=== PATIENT | male | born 1945 | race Caucasian/White ===

== ENCOUNTER → 2016-11-23 08:51 | Outpatient (CLI) | payer MEDICARE, OTHER | END | disposition home or self-care (01) | LOC: D.RT 08:51 | DX: R06.00 Dyspnea, unspecified (principal) ==

== ENCOUNTER → 2017-09-27 09:00 | Outpatient (CLI) | payer MEDICARE, OTHER ==
[~2017-09-27 09:00] MED LIST: ADVIL200 MG PO; AMBIEN10 MG PO; ASCORBIC ACID500 MG PO; ASPIRIN EC81 M1 PO; BACLOFEN10 MG PO; BIOFLEX TABLET1 EACH PO; BUMETANIDE0.5 MG PO; BYSTOLIC5 MG PO; CALTRATE 600 M600 M1 PO; CENTRUM SILVER1 TA1 PO; CRESTOR10 MG PO; CYCLOBENZAPRINE10 MG PO; FLOMAX0.4 MG PO; FLUTICASONE PRO16 GM NASAL; FOLATE0.4 MG PO; LINZESS290 MCG PO; NEURONTIN600 MG PO; NEXIUM40 MG PO; OCUVITE TABLET1 TA1 PO; OXYCODONE HCL5 MG PO; PHILLIP COLON HEALTH PO; POTASSIUM99 M1 PO; PREVAGEN PO; PROSCAR5 MG PO; REGLAN5 MG PO; ROXICODONE15 MG PO; SKELAXIN800 MG PO; SUPER BETA PROSTATE PO; VITAMIN B-121000 MCG PO; VITAMIN D3400 UNI1 PO
[2017-10-26 14:45] VITALS: BMI 31.4
== END | disposition home or self-care (01) ==
LOC: D.OPS 09:00
DX: K21.9 Gastro-esophageal reflux disease without esophagitis (principal)

== ENCOUNTER 2017-10-26 05:50 | Inpatient (IN) | payer MEDICARE, OTHER ==
[2017-10-25 11:54] LABS: HEMATOCRIT 37.2 % (42.0-54.0); HEMOGLOBIN 11.8 g/dL (13.5-17.5); MCH 25.1 pg (26.0-34.0); MCHC 31.7 g/dL (31.0-37.0); MEAN PLATELET VOLUME 9.8 fL (7.4-10.4); RBC 4.71 10x6/uL (4.20-6.10); RDW 16.8 % (11.5-14.5); WBC 7.6 10x3/uL (4.8-10.8)
[2017-10-25 12:02] LABS: CALC OSMOLALITY 263 mosm/kg (275-300); CALCIUM 8.8 mg/dL (8.5-10.1); CARBON DIOXIDE 29.9 mmol/L (21.0-32.0); CHLORIDE - SERUM 96 mmol/L (98-107); CREATININE - SERUM 0.9 mg/dL (0.6-1.3); GLUCOSE 100 mg/dL (74-106); POTASSIUM - SERUM 4.7 mmol/L (3.5-5.1); SODIUM 131 mmol/L (136-145); UREA NITROGEN 15 mg/dL (7-18); eGFR NON AFRICAN AMERICAN 89 mL/min (90-120)
[~2017-10-26] VITALS: Ht 170.2 cm; Wt 90.9 kg
[~2017-10-26 05:50] MED LIST changes: -OXYCODONE HCL5 MG PO
[2017-10-26 09:15] VITALS: BP 113/77; BMI 31.4
[2017-10-26 12:54] VITALS: BP 150/82
[2017-10-26 14:45] VITALS: BP 131/79; Ht 170.2 cm; Wt 90.9 kg
[2017-10-26 20:00] VITALS: BP 130/72
[2017-10-27] VITALS: BP 133/77
[2017-10-27 04:00] VITALS: BP 105/55
[2017-10-27 06:49] LABS: BASOPHILS 0.1 % (0-2); EOSINOPHILS 0.2 % (0-7); HEMATOCRIT 32.5 % (42.0-54.0); HEMOGLOBIN 10.1 g/dL (13.5-17.5); IMMATURE GRANULOCYTES 0.6 % (0-5); MCH 24.7 pg (26.0-34.0); MCHC 31.1 g/dL (31.0-37.0); MCV 79.5 fL (80.0-100.0); MEAN PLATELET VOLUME 9.2 fL (7.4-10.4); MONOCYTES 9.8 % (2-11); NEUTROPHILS 71.3 % (40-80); PLATELET COUNT 169 10x3/uL (130-400); RBC 4.09 10x6/uL (4.20-6.10); RDW 16.9 % (11.5-14.5); WBC 9.4 10x3/uL (4.8-10.8)
[2017-10-27 07:04] LABS: ALBUMIN 3.1 g/dL (3.4-5.0); ALKALINE PHOSPHATASE 54 U/L (46-116); ALT (SGPT) 52 U/L (10-68); BILIRUBIN - TOTAL 0.23 mg/dL (0.2-1.3); CALC OSMOLALITY 264 mosm/kg (275-300); CALCIUM 8.8 mg/dL (8.5-10.1); CARBON DIOXIDE 30.5 mmol/L (21.0-32.0); CHLORIDE - SERUM 94 mmol/L (98-107); CREATININE - SERUM 0.8 mg/dL (0.6-1.3); GLUCOSE 99 mg/dL (74-106); PROTEIN - SERUM 6.1 g/dL (6.4-8.2); SODIUM 132 mmol/L (136-145); UREA NITROGEN 13 mg/dL (7-18); eGFR NON AFRICAN AMERICAN > 90 mL/min (90-120)
[2017-10-27 08:45] VITALS: BP 121/76
[2017-10-27] MEDS ORDERED: OXYCODONE HCL5 MG PO (09:09)
== END 2017-10-27 14:02 | disposition home or self-care (01) | DRG 328 ==
LOC: D.MS 05:50 → D.SDCHOLD 05:50 → D.PAN 09:45 → D.OPS 09:45 → EDSTATUS 09:45 → D.SDCHOLD 09:45 → D.MS 11:50
PROVIDERS: Anesthesiology; Surgery
PROC: 0BQT4ZZ Repair Diaphragm, Percutaneous Endoscopic Approach (ICD-10-PCS; 2017-10-26)
PROC: 0DV44ZZ Restriction of Esophagogastric Junction, Percutaneous Endoscopic Approach (ICD-10-PCS; principal; 2017-10-26 09:45)
DX: K21.0 Gastro-esophageal reflux disease with esophagitis (principal); K44.9 Diaphragmatic hernia without obstruction or gangrene; K22.70 Barrett's esophagus without dysplasia

== ENCOUNTER 2018-01-04 09:13 | Day surgery (SDC) | payer MEDICARE, OTHER ==
[2018-01-03 11:29] LABS: CALC OSMOLALITY 248 mosm/kg (275-300); CALCIUM 8.3 mg/dL (8.5-10.1); CARBON DIOXIDE 24.7 mmol/L (21.0-32.0); CHLORIDE - SERUM 90 mmol/L (98-107); CREATININE - SERUM 0.7 mg/dL (0.6-1.3); GLUCOSE 93 mg/dL (74-106); POTASSIUM - SERUM 4.1 mmol/L (3.5-5.1); SODIUM 124 mmol/L (136-145); UREA NITROGEN 9 mg/dL (7-18); eGFR NON AFRICAN AMERICAN > 90 mL/min (90-120)
[2018-01-03 11:36] LABS: HEMATOCRIT 34.4 % (42.0-54.0); HEMOGLOBIN 11.9 g/dL (13.5-17.5); MCH 28.3 pg (26.0-34.0); MCHC 34.6 g/dL (31.0-37.0); MCV 81.9 fL (80.0-100.0); RBC 4.2 10x6/uL (4.20-6.10); RDW 15.2 % (11.5-14.5)
[~2018-01-04] VITALS: Ht 167.6 cm; Wt 88.5 kg
[~2018-01-04 09:13] MED LIST changes: +OXYCODONE HCL5 MG PO
[2018-01-04 09:59] VITALS: Ht 167.6 cm; Wt 88.5 kg
[2018-01-04] MEDS ORDERED: OXYCODONE HCL5 MG PO (12:50)
== END 2018-01-04 14:55 | disposition home or self-care (01) ==
LOC: D.OPS 09:13 → D.PAN 11:15 → D.OPS 11:15
PROVIDERS: Anesthesiology
DX: R09.89 Other specified symptoms and signs involving the circulatory and respiratory systems (principal); I25.10 Atherosclerotic heart disease of native coronary artery without angina pectoris; E78.5 Hyperlipidemia, unspecified; I10 Essential (primary) hypertension; Z87.891 Personal history of nicotine dependence; K21.9 Gastro-esophageal reflux disease without esophagitis; M19.90 Unspecified osteoarthritis, unspecified site; Z01.812 Encounter for preprocedural laboratory examination